=== PATIENT | male | born 1965 ===

== ENCOUNTER → 2022-07-15 13:16 | Outpatient (CLI) | payer OTHER, SELFPAY ==
--- NOTE | ~2022-07-15 | MR_ITS ---
EXAMINATION: MR elbow RT wo con DATE: 07/15/2022 14:13 INDICATION: Right elbow pain following lifting injury to the tendon of the elbow. TECHNIQUE: Magnetic resonance imaging (MRI) of the right elbow was performed without intravenous cont rast. Sequences included coronal, axial, sagittal and coronal PD-weighted FSE, axial T2-weighted FS F SE and axial, sagittal and coronal fluid sensitive FSE STIR. COMPARISON: None FINDINGS: Osseous/other: Normal alignment. No fracture or pathologic marrow replacing process. 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 Small region of partial-thickness chondral ulceration involving greater than 50% the cartila ge thickness but without degenerative subchondral changes along the capitellum. Additional small focu s of deep chondral ulceration with underlying edema-like marrow signal change at the lateral side of the trochlear articular surface. Tendons: Triceps tendon is normal. Mild tendinopathy without tear at the distal brachialis tendon. Complete te ar of the distal biceps brachii tendon near its radial tuberosity insertion where there is a small am ount of residual attached frayed tendon material. The tendon is folded back upon itself and retracted 10 cm from the site of the tear. Minimal tendinopathy without tear at the medial and lateral epicond ylar origins of the common flexor and extensor tendon wads respectively. Ligaments: The medial collateral ligament complex is normal. There is thickening and prominent fluid signal exte nding between the otherwise intact appearing low signal intensity ligament fibers of the radial colla teral ligament consistent with low-grade sprain/partial tear of indeterminate chronicity given the la ck of significant surrounding edema. Cubital tunnel: Cubital tunnel is unremarkable with normal signal and caliber of the ulnar nerve. Fluid: Physiologic amount of fluid the elbow joint. IMPRESSION: 1. Complete tear and 10 cm proximal retraction of the distal biceps brachii tendon. 2. Age-indeterminate low grade sprain/partial tear of the radial collateral ligament. 3. Mild osteoarthritis at the right elbow. 4. Additional mild tendinopathy without discrete tear, mild at the distal brachialis tendon and minim al at the common extensor and flexor tendon wad is . Reviewed, dictated and finalized at location B. IMPRESSION: 1. Complete tear and 10 cm proximal retraction of the distal biceps brachii ten don. 2. Age-indeterminate low grade sprain/partial tear of the radial collateral lig ament. 3. Mild osteoarthritis at the right elbow. 4. Additional mild tendinopathy without discrete tear, mild at the distal brach ialis tendon and minimal at the common extensor and flexor tendon wad is .
== END ==
DX: S46.211A Strain of muscle, fascia and tendon of other parts of biceps, right arm, initial encounter (principal); S53.431A Radial collateral ligament sprain of right elbow, initial encounter; M19.021 Primary osteoarthritis, right elbow
CPT/HCPCS: 73221